=== PATIENT | female | born 1965 ===

== ENCOUNTER 2018-01-19 10:24 | Day surgery (SDC) | payer BC ==
[2018-01-15 10:38] VITALS: BMI 34.5
[2018-01-19] MEDS ORDERED: Propofol 10 mg/ml Inj (20 ML) ONE (11:54)
[2018-01-19] MEDS ORDERED: Sodium Chloride 0.9% 1,000 ML IV SCH (12:30)
[2018-01-19 13:01] VITALS: O2SAT 98
[2018-01-19 14:04] VITALS: BP 133/72; PULSE 60; RESP 17; TEMP 98
== END 2018-01-19 14:45 | disposition home or self-care (01) ==
LOC: ENDO 10:24
PROVIDERS: ATTEND Internal Medicine Gastroenterology
DX: K62.5 Hemorrhage of anus and rectum (principal); K64.8 Other hemorrhoids; K57.30 Diverticulosis of large intestine without perforation or abscess without bleeding; R19.4 Change in bowel habit
CPT/HCPCS: 45378; J2001; J7030; J2704; J7040